=== PATIENT | female | born 1955 | race American Indian/Alaskan Native ===

== ENCOUNTER 2017-07-23 01:24 | Emergency (ER) | payer BC ==
[2017-07-23] MEDS ORDERED: MOTRIN PO ONE (02:59)
--- NOTE | 2017-07-23 03:31 | XRay Report ---
FINAL REPORT EXAM: XR SPINE CERVICAL 2-3V HISTORY: neck pain TECHNIQUE: Three views of the cervical spine were obtained. FINDINGS: There is straightening of the usual cervical lordosis. The disc heights and alignment appear normal. There is endplate spurring at C5. The prevertebral soft tissues and C1-C2 articulation appear intact. IMPRESSION: Straightening of the usual cervical lordosis secondary to patient positioning versus spasm. Otherwise unremarkable exam.
--- NOTE | 2017-07-23 03:33 | XRay Report ---
FINAL REPORT EXAM: XR HUMERUS 2+V LT HISTORY: left upper arm pain TECHNIQUE: Two views of the left humerus were obtained. FINDINGS: There are no skeletal or soft tissue abnormalities. IMPRESSION: Normal exam.
--- NOTE | 2017-07-23 03:33 | XRay Report ---
FINAL REPORT EXAM: XR SHOULDER 2+V LT HISTORY: left shoulder pain TECHNIQUE: Five views of the left shoulder were submitted. FINDINGS: The AC joint and glenohumeral joint appear well maintained. The subacromial space appears normal. Soft tissues are unremarkable. IMPRESSION: Unremarkable exam.
--- NOTE | 2017-07-23 04:21 | Emergency Department Report ---
HPI - General Chief Complaint: Neck Pain/Injury Time Seen by Provider: 07/23/17 04:16 - HPI HPI: Patient is a 61-year-old female who presents to ED complaining of left-sided neck pain radiating to shoulder for the past month. Patient states pain has gotten worse in the past week due to her work schedule. 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 She states it's muscular in nature and hurts with certain movements and lifting the arm. She denies trauma, injury sugar head neck or arm. She denies taking any medication denies chest pain, shortness of breath, blurry vision headache or any other problems ED Past Medical Hx - Past Medical History Previous Medical History?: No - Surgical History Additional Surgical History: hysterectomy - Social History Smoking Status: Never Smoker Substance Use Type: None - Medications Home Medications: Home Medications Medication Instructions Recorded Confirmed Last Taken Type Ibuprofen [Motrin 800 MG tab] 800 mg PO Q8H PRN #20 tablet 04/24/14 Unknown Rx HYDROcodone/APAP 7.5-325 [[place] 1 each PO Q6HR PRN #20 tablet 12/01/14 Unknown Rx 7.5/325] Methocarbamol [Robaxin TAB] 750 mg PO Q8H PRN #21 tablet 12/01/14 Unknown Rx Promethazine [Phenergan TAB] 25 mg PO Q6HR PRN #12 tab 04/17/15 Unknown Rx traMADol [Ultram 50 MG tab] 50 mg PO Q6HR PRN #16 tablet 04/17/15 Unknown Rx Cyclobenzaprine [Flexeril 10 MG 10 mg PO QHS PRN #20 tablet 07/23/17 Unknown Rx TAB] Diclofenac Dr [Armando Dr] 75 mg PO Q12H #60 tablet 07/23/17 Unknown Rx ED Review of Systems ROS: Stated complaint: LEFT ARM,NECK PAIN Other details as noted in HPI Constitutional: denies: chills, fever Eyes: denies: eye pain, eye discharge, vision change ENT: denies: ear pain, throat pain Respiratory: denies: cough, shortness of breath, wheezing Cardiovascular: denies: chest pain, palpitations Endocrine: no symptoms reported Gastrointestinal: denies: abdominal pain, nausea, diarrhea Genitourinary: denies: urgency, dysuria, discharge Musculoskeletal: denies: back pain, joint swelling, arthralgia Skin: denies: rash, lesions Neurological: denies: headache, weakness, paresthesias Psychiatric: denies: anxiety, depression Hematological/Lymphatic: denies: easy bleeding, easy bruising Physical Exam - Physical Exam Vital Signs: Vital Signs 07/23/17 02:49 Temperature 97.7 F Pulse Rate 56 L Respiratory 18 Rate Blood Pressure 127/73 O2 Sat by Pulse 99 Oximetry Physical Exam: GENERAL: Alert and oriented x3, no apparent distress, Normal Gait, atraumatic. HEAD: Head is normocephalic and a-traumatic. NECK: Supple. Non edematous, No lymphadenopathy or thyromegaly. No C-spine tenderness. Tenderness to palpation of the left sternocleidal to trapezius muscles LUNGS: Symetrical with respiration, No wheezing, no rales or crackles, CTAB. HEART: S1, S2 present, regular rate and rhythm without murmur, no rubs, no gallops. Non tender to palpation BACK: Full range of motion, no spinal tenderness, nontender to palpation. EXTREMITIES/MUSCULOSKELETAL: No cyanosis, clubbing, rash, lesions or edema. Full ROM bilaterally. UE/LE Pulses 2+ bilaterally. LE and UE 5+ strength bilaterally NEUROLOGIC: The patient is cooperative with no focal neurologic deficits. . Normal speech. Normal sensation in bilateral upper and lower extremities, No loss of sensation, . SKIN: Warm and dry, No lesions, No ulceration or induration present. ED Course Vital Signs 07/23/17 02:49 Temperature 97.7 F Pulse Rate 56 L Respiratory 18 Rate Blood Pressure 127/73 O2 Sat by Pulse 99 Oximetry ED Medical Decision Making - Radiology Data Radiology results: report reviewed, image reviewed FINAL REPORT EXAM: XR HUMERUS 2+V LT HISTORY: left upper arm pain TECHNIQUE: Two views of the left humerus were obtained. FINDINGS: There are no skeletal or soft tissue abnormalities. IMPRESSION: Normal exam. Transcribed By: RB Dictated By: HELENE ARORA MD Electronically Authenticated By: HELENE ARORA MD Signed Date/Time: 07/23/17 0326 FINAL REPORT EXAM: XR SHOULDER 2+V LT HISTORY: left shoulder pain TECHNIQUE: Five views of the left shoulder were submitted. FINDINGS: The AC joint and glenohumeral joint appear well maintained. The subacromial space appears normal. Soft tissues are unremarkable. IMPRESSION: Unremarkable exam. Transcribed By: RB Dictated By: HELENE ARORA MD Electronically Authenticated By: HELENE ARORA MD Signed Date/Time: 07/23/17 0328 - Medical Decision Making 61-year-old female presents to ED with myalgia/ muscle strain ED course: Patient was x-rayed while in the ED. X-ray shows no acute findings I discussed this findings with the patient. Vital signs are normal patient is in no acute distress Discussed with patient follow-up with primary care physician. Discussed the patient and take medications as prescribed. Patient has no neurological deficit. Patient is alert and oriented 3 and understands all instructions given. Discussed drowsiness effect of Flexeril makes her drowsy and not to operate machinery while taking flexeril Critical care attestation.: If time is entered above; I have spent that time in minutes in the direct care of this critically ill patient, excluding procedure time. ED Disposition Clinical Impression: Myalgia Neck muscle strain Qualifiers: Encounter type: initial encounter Qualified Code(s): S16.1XXA - Strain of muscle, fascia and tendon at neck level, initial encounter Disposition: TO HOME OR SELFCARE Is pt being admited?: No Does the pt Need Aspirin: No Condition: Stable Instructions: Muscle Strain (ED), Trigger Point Pain (ED), Musculoskeletal Pain (ED) Additional Instructions: Make sure to follow up with the primary care physician as discussed. Take all your medications as you've been prescribed. If you have any worsening symptoms or develop new symptoms please return to ED immediately. Prescriptions: Cyclobenzaprine [Flexeril 10 MG TAB] 10 mg PO QHS PRN #20 tablet PRN Reason: Muscle Spasm Diclofenac [Voltaren Dr] 75 mg PO Q12H #60 tablet Referrals: LAQUITA NOE MD [Primary Care Provider] - 3-5 Days KEENAN GALLAGHER MD [Referring] - 3-[address] [facility] [Outside] - 3-5 Days [facility] [Outside] - 3-5 Days Forms: Accompanied Note, Work/School Release Form(ED) Time of Disposition: 05:19
[2017-07-23 05:32] VITALS: BP 124/70
== END 2017-07-23 05:32 | disposition home or self-care (01) ==
LOC: ED 01:24
DX: S16.1XXA Strain of muscle, fascia and tendon at neck level, initial encounter (principal); X50.0XXA Overexertion from strenuous movement or load, initial encounter; Y93.89 Activity, other specified; Y92.89 Other specified places as the place of occurrence of the external cause; Y99.8 Other external cause status
CPT/HCPCS: 72040; 99283

== ENCOUNTER 2020-05-03 10:03 | Emergency (ER) | payer BC ==
[2020-05-03 10:21] VITALS: BP 126/71
--- NOTE | 2020-05-03 10:40 | Emergency Department Report ---
ED Extremity Problem HPI - General Chief complaint: Extremity Injury, Lower Stated complaint: LEFT HEEL PAIN/LEG PAIN Time Seen by Provider: 05/03/20 10:22 Source: patient Mode of arrival: Ambulatory Limitations: No Limitations - History of Present Illness Initial comments: Patient is a 64-year-old female presents emergency room with complaints of left heel pain that exacerbated yesterday. She states that she recently just started back to work and that is why she believes her heel pain exacerbated. She states that she has had chronic heel pain for over a year. She states that she was seeing a cod clerk and last saw them in August 2019. She states that she is supposed to wear braces at night and has had injections in the heel in the past. She states that she just started wearing her brace again last night. She denies any fall or injury. She denies any numbness or weakness. She denies any swelling. She states that she had to leave work today secondary to complaint of pain and needs a work excuse. No past medical history. No allergies to medications. - Related Data Previous Rx's Medication Instructions Recorded Last Taken Type Ibuprofen [Motrin 800 MG tab] 800 mg PO Q8H PRN #20 tablet 04/24/14 Unknown Rx HYDROcodone/APAP 7.5-325 [[place] 1 each PO Q6HR PRN #20 tablet 12/01/14 Unknown Rx 7.5/325] methOCARBAMOL [Robaxin TAB] 750 mg PO Q8H PRN #21 tablet 12/01/14 Unknown Rx Promethazine [Phenergan TAB] 25 mg PO Q6HR PRN #12 tab 04/17/15 Unknown Rx traMADoL [Ultram 50 MG tab] 50 mg PO Q6HR PRN #16 tablet 04/17/15 Unknown Rx Cyclobenzaprine [Flexeril 10 MG 10 mg PO QHS PRN #20 tablet 07/23/17 Unknown Rx TAB] Kimberlee Diaz [Armando Diaz] 75 mg PO Q12H #60 tablet 07/23/17 Unknown Rx Menthol/Camphor [[place] 1 applicatio TP BID #18 oint...g. 05/03/20 Unknown Rx Ointment] Naproxen [EC-Naprosyn] 500 mg PO BID PRN #20 royer. 05/03/20 Unknown Rx Allergies Allergy/AdvReac Type Severity Reaction Status Date / Time No Known Allergies Allergy Verified 05/03/20 10:18 ED Review of Systems ROS: Stated complaint: LEFT HEEL PAIN/LEG PAIN Other details as noted in HPI Comment: All other systems reviewed and negative ED Past Medical Hx - Past Medical History Previous Medical History?: No - Surgical History Additional Surgical History: hysterectomy - Social History Smoking Status: Never Smoker Substance Use Type: None - Medications Home Medications: Home Medications Medication Instructions Recorded Confirmed Last Taken Type Ibuprofen [Motrin 800 MG tab] 800 mg PO Q8H PRN #20 tablet 04/24/14 Unknown Rx HYDROcodone/APAP 7.5-325 [[place] 1 each PO Q6HR PRN #20 tablet 12/01/14 Unknown Rx 7.5/325] methOCARBAMOL [Robaxin TAB] 750 mg PO Q8H PRN #21 tablet 12/01/14 Unknown Rx Promethazine [Phenergan TAB] 25 mg PO Q6HR PRN #12 tab 04/17/15 Unknown Rx traMADoL [Ultram 50 MG tab] 50 mg PO Q6HR PRN #16 tablet 04/17/15 Unknown Rx Cyclobenzaprine [Flexeril 10 MG 10 mg PO QHS PRN #20 tablet 07/23/17 Unknown Rx TAB] Diclofenac Dr [Armando Diaz] 75 mg PO Q12H #60 tablet 07/23/17 Unknown Rx Menthol/Camphor [[place] 1 applicatio TP BID #18 oint...g. 05/03/20 Unknown Rx Ointment] Naproxen [EC-Naprosyn] 500 mg PO BID PRN #20 tablet.dr 05/03/20 Unknown Rx ED Physical Exam - General Limitations: No Limitations General appearance: alert, in no apparent distress - Head Head exam: Present: atraumatic, normocephalic - Eye Eye exam: Present: normal appearance - ENT ENT exam: Present: mucous membranes moist - Respiratory Respiratory exam: Absent: respiratory distress, accessory muscle use - Extremities Exam Extremities exam: Present: other (mild left heel ttp, FROM of the LLE, no edema, no erythema, no increased warmth, neurovascularly intact, no joint laxity, achiles tendon is intact) - Neurological Exam Neurological exam: Present: alert, oriented X3 - Psychiatric Psychiatric exam: Present: normal affect, normal mood - Skin Skin exam: Present: warm, dry, intact ED Course Vital Signs 05/03/20 10:20 Temperature 98.3 F Pulse Rate 65 Respiratory 16 Rate Blood Pressure 126/71 O2 Sat by Pulse 100 Oximetry ED Medical Decision Making - Medical Decision Making Patient is a 64-year-old female presents emergency room with complaints of left heel pain that exacerbated yesterday. She states that she recently just started back to work and that is why she believes her heel pain exacerbated. She states that she has had chronic heel pain for over a year. She states that she was seeing a cod clerk and last saw them in August 2019. She states that she is supposed to wear braces at night and has had injections in the heel in the past. She states that she just started wearing her brace again last night. She denies any fall or injury. She denies any numbness or weakness. She denies any swelling. She states that she had to leave work today secondary to complaint of pain and needs a work excuse. No past medical history. No allergies to medications. vitals are normal. on exam: mild left heel ttp, FROM of the LLE, no edema, no erythema, no increased warmth, neurovascularly intact, no joint laxity, achiles tendon is intact. No clinical signs of septic joint, gout, DVT, arterial occlusion. Patient is presenting with acute on chronic heel pain. She has had no trauma. She has already been diagnosed with plantar fasciitis and her cod clerk advised her that if her last cortisone injection did not work then she may need to consider a surgical option. She states that she is going to follow back up with her cod clerk. Patient given prescription for naproxen and [place] balm ointment. Advised patient Please use medication as prescribed. May use ice pack, heating pad, rest, Epsom salt bath. Please continue to wear your braces that your doctor gave you at night. Follow-up with your primary care doctor. Follow-up with your cod clerk. Return to emergency room for any new or worsening symptoms. - Differential Diagnosis Bone spur, plantar fasciitis, arthritis, chronic pain Critical care attestation.: If time is entered above; I have spent that time in minutes in the direct care of this critically ill patient, excluding procedure time. ED Disposition Clinical Impression: Pain of left heel Disposition: - TO HOME OR SELFCARE Is pt being admited?: No Does the pt Need Aspirin: No Condition: Stable Instructions: Plantar Fasciitis Additional Instructions: Please use medication as prescribed. May use ice pack, heating pad, rest, Epsom salt bath. Please continue to wear your braces that your doctor gave you at night. Follow-up with your primary care doctor. Follow-up with your cod clerk. Return to emergency room for any new or worsening symptoms. Prescriptions: Naproxen [EC-Naprosyn] 500 mg PO BID PRN #20 tablet.dr MALONE Reason: pain Menthol/Camphor [[place] Ointment] 1 applicatio TP BID #18 oint...g. Referrals: your, primary care doctor [Other] - 3-5 Days your, cod clerk [Other] - 3-5 Days Forms: Work/School Release Form(ED) Time of Disposition: 10:39 Print Language: MONGOLIAN
== END 2020-05-03 11:00 | disposition home or self-care (01) ==
LOC: ED 10:03
DX: M79.672 Pain in left foot (principal); Z90.710 Acquired absence of both cervix and uterus; Z79.1 Long term (current) use of non-steroidal anti-inflammatories (NSAID); Z79.899 Other long term (current) drug therapy
CPT/HCPCS: 99282

== ENCOUNTER 2021-02-19 11:02 | Emergency (ER) | payer BC, OTHER ==
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
[2021-02-19 15:16] VITALS: BP 133/69
== END 2021-02-19 16:09 | disposition home or self-care (01) ==
LOC: ED 11:02
DX: S46.811A Strain of other muscles, fascia and tendons at shoulder and upper arm level, right arm, initial encounter (principal); M54.2 Cervicalgia; R51.9 Headache, unspecified; Z90.710 Acquired absence of both cervix and uterus; Z79.899 Other long term (current) drug therapy; V87.7XXA Person injured in collision between other specified motor vehicles (traffic), initial encounter; Y93.89 Activity, other specified; Y92.488 Other paved roadways as the place of occurrence of the external cause; Y99.8 Other external cause status
CPT/HCPCS: 72040; 99283